=== PATIENT | male | born 1990 | race African-American/Black ===

== ENCOUNTER 2016-08-03 22:14 | Emergency (ER) | payer OTHER ==
[~2016-08-03] VITALS: Ht 177.8 cm; Wt 68.0 kg
[~2016-08-03 22:14] MED LIST: ALBUTEROL SULF8.5 GM INH; KEFLEX500 MG ORAL
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
[2016-08-03 22:38] VITALS: BP 101/64
[2016-08-03 22:43] VITALS: BP 101/64
--- NOTE | 2016-08-04 10:46 | Diagnostic Imaging Report ---
Indications: Left-sided headaches facial trauma, pain Technique: Continuous helical CT imaging of the brain was performed with automatic exposure control on a Siemens sensation [address] scanner. Axial and coronal images were reconstructed at 5 mm slice thickness and interval. CTDI volume(s): 70 mGy Total DLP: 1368 mGy-cm Findings: Comparison: None. Intracranial anatomy is unremarkable. No evidence of mass or hemorrhage, other attenuation abnormality, mass effect, midline shift, hydrocephalus or increased intracranial pressure. Bone window images are unremarkable. Visualized paranasal sinuses and mastoid air cells are clear. Left malar soft tissue swelling and increased in attenuation. No associated gas or foreign body. IMPRESSION: Left malar soft tissue swelling/hematoma. Consider facial CT scan for further evaluation. Otherwise negative noncontrast CT scan of the brain . This correlates with [employer] preliminary report. The CT scanner at [facility] [place] is accredited by the [employer] and the scans are performed using protocols designed to limit radiation exposure to as low as reasonably achievable to attain images of sufficient resolution adequate for diagnostic evaluation.
== END 2016-08-03 22:45 ==
LOC: EMR 22:20
DX: S00.12XA Contusion of left eyelid and periocular area, initial encounter (principal); Y04.2XXA Assault by strike against or bumped into by another person, initial encounter; Y92.9 Unspecified place or not applicable; F17.200 Nicotine dependence, unspecified, uncomplicated; J45.909 Unspecified asthma, uncomplicated
CPT/HCPCS: 70450; 99284

== ENCOUNTER 2018-08-22 06:04 | Emergency (ER) | payer OTHER ==
[~2018-08-22] VITALS: Ht 177.8 cm; Wt 70.3 kg
--- NOTE | 2018-08-22 06:10 | NUR ---
ED Nurse Note: Pt is current wheezing and c/o asthma episode.Pt states he run out of his inhale meds. Pt is AO x 4times, VSS, wheezing when talking, 100% O2 Sat on room air. ERMD at bedside.
--- NOTE | 2018-08-22 06:30 | NUR ---
ED Nurse Note: RT breathing treatment at bedside.
[2018-08-22] MEDS: Ipratropium 0.02% Inh Soln 2.5ml UD HHN SCH ×3 (06:32→07:19)
[2018-08-22] MEDS: Albuterol ud Inhalation HHN SCH ×3 (06:33→07:19)
[2018-08-22 06:38] VITALS: BP 122/76
--- NOTE | 2018-08-22 07:10 | NUR ---
ED Nurse Note: Patient is receiving breathing treatment and RT at bedside. Patient awake, alert, orientedx 4. Regular, unlabored breahthing noted. Pulse oximetry reading maintaining @ 96%.
[2018-08-22] MEDS ORDERED: Albuterol ud Inhalation HHN ONE (07:30)
[2018-08-22] MEDS ORDERED: Ipratropium 0.02% Inh Soln 2.5ml UD HHN ONE (07:30)
--- NOTE | 2018-08-22 07:58 | NUR ---
ED Nurse Note: Ambulating to the restroom without SOB and able to speak full sentence.
[2018-08-22 08:22] VITALS: BP 97/58
[2018-08-22] MEDS ORDERED: MEDROL DOSEPAK4 MG ORAL (08:35)
[2018-08-22] MEDS ORDERED: ROBAXIN-750750 MG PO (08:35)
[2018-08-22] MEDS ORDERED: ALBUTEROL SULF8.5 GM INH (08:35)
[2018-08-22 09:05] VITALS: BP 97/58
--- NOTE | 2018-08-22 09:06 | NUR ---
ED Nurse Note: Patient is being discharged from medical care. Patient awake, alert, orietned x4. D/C insturction and prescription given and all qustions were answered. Patient ambulated with steady gait with all his belongings.
--- NOTE | 2018-08-22 09:46 | Emergency Room Report ---
History of Present Illness General Chief Complaint: Asthma Source: Patient Present Illness HPI Patient presents with complaints of asthma exacerbation reports that over the past several months he has had more exacerbations the usual Denies any chest pain denies any vomiting Patient has also ran out of his inhaler denies any fevers denies any recent travel Patient has had low back problems and has had recent MRI with what he reports as being disc herniations in the lower back Denies any change with bowel or urination denies any chest pain or pleurisy Allergies: Coded Allergies: IBUPROFEN (Verified Allergy, Unknown, 08/22/18) Uncoded Allergies: SHELLFISH (Allergy, Unknown, 08/22/18) Patient History Past Medical History: see triage record Pertinent Family History: none Reviewed Nursing Documentation: PMH: Agreed; PSxH: Agreed Nursing Documentation-PMH Hx Asthma: Yes Review of Systems All Other Systems: negative except mentioned in HPI Physical Exam Vital Signs Date Time Temp Pulse Resp B/P (MAP) Pulse Ox O2 Delivery O2 Flow Rate FiO2 08/22/18 06:08 97.5 87 20 119/73 100 Room Air 08/22/18 06:32 21 Sp02 EP Interpretation: reviewed, normal General Appearance: no apparent distress - acute asthma exacerbation however Head: normocephalic, atraumatic Eyes: bilateral eye PERRL, bilateral eye EOMI ENT: hearing grossly normal, normal pharynx, TMs + canals normal, uvula midline Neck: full range of motion, supple, no meningismus, no bony tend Respiratory: no respiratory distress, no retraction, no accessory muscle use, wheezing - Bilaterally Cardiovascular #1: normal peripheral pulses, regular rate, rhythm, no edema, no gallop, no JVD, no murmur Gastrointestinal: normal bowel sounds, non tender, soft, no mass, no organomegaly, non-distended, no guarding, no hernia, no pulsatile mass, no rebound Genitourinary: no CVA tenderness Musculoskeletal: other - Patient reports previous low back injury with disc herniations, further extensive testing otherwise is not done, patient has sensory intact and ambulatory Neurologic: oriented x3, responsive, sensory intact Psychiatric: mood/affect normal Skin: normal color, no rash, warm/dry, palpation normal Lymphatic: normal inspection, no adenopathy Medical Decision Making Diagnostic Impression: Primary Impression: Asthma attack Additional Impression: back pain ER Course Patient has acute asthma exacerbation addressed also received steroids and Tylenol for low back pain Patient has done significantly better after acute intervention and requires improved outpatient care Last Vital Signs Date Time Temp Pulse Resp B/P (MAP) Pulse Ox O2 Delivery O2 Flow Rate FiO2 08/22/18 09:05 97.7 80 14 97/58 98 Room Air 21 Status: improved Disposition: HOME, SELF-CARE Condition: Improved Scripts Methylprednisolone (Methylprednisolone*) 4MG Dspk 4 MG ORAL DIRECTED for 6 Days, #21 EA 0 Refills Day 1: Two tablets before breakfast, one after lunch, one after dinner, and two at bedtime. If started late in the day, take all six tablets at once or divide into two or three doses, unless otherwise directed by prescriber. Day 2: One tablet before breakfast, one after lunch, one after dinner, and two at bedtime Day 3: One tablet before breakfast, one after lunch, one after dinner, and one at bedtime Day 4: One tablet before breakfast, one after lunch, and one at bedtime Day 5: One tablet before breakfast and one at bedtime Day 6: One tablet before breakfast Prov: Prakash Gonzalez DO 08/22/18 Albuterol Sulfate* (ALBUTEROL SULFATE MDI*) 8.5 Gm Hfa.aer.ad 2 PUFF INH Q6H, #1 EA 0 Refills Prov: Prakash Gonzalez DO 08/22/18 Methocarbamol* (ROBAXIN-750*) 750 Mg Tablet 750 MG PO TID, #21 TAB 0 Refills Prov: Prakash Gonzalez DO 08/22/18 Referrals: NOT CHOSEN IPA/MD,REFERRING (PCP) Patient Instructions: Asthma, Adult, Back Pain, Adult, [id number] Additional Instructions: Patient is provided with the discharge instructions notified to follow up with primary doctor in the next 2-3 days otherwise return to the er with any worsening symptoms. Please note that this report is being documented using [employer] technology. This can lead to erroneous entry secondary to incorrect interpretation by the dictating instrument. Prakash Gonzalez DO Aug 22, 2018 09:46
== END 2018-08-22 09:07 | disposition home or self-care (01) ==
LOC: EMR 06:33
DX: J45.901 Unspecified asthma with (acute) exacerbation (principal); M54.9 Dorsalgia, unspecified; Z88.6 Allergy status to analgesic agent; Z91.013 Allergy to seafood
CPT/HCPCS: 94640; 94664; 99284; J7512

== ENCOUNTER 2018-09-27 04:08 | Emergency (ER) | payer OTHER ==
[~2018-09-27] VITALS: Ht 177.8 cm; Wt 68.0 kg
[~2018-09-27 04:08] MED LIST changes: +MEDROL DOSEPAK4 MG ORAL; +ROBAXIN-750750 MG PO
[2018-09-27] MEDS ORDERED: Albuterol/Ipratropium 3ml neb HHN ONE (04:15)
--- NOTE | 2018-09-27 04:15 | NUR ---
ED Nurse Note: Patient walked into ED in respiratory distress, at time of arrival patient is actively wheezing, labored breathing, Bed side triage performed, patients o2 sat was 95% with 3 respirations per minute, patient is alert nado riented x4, ambulatory with a steady gait, VSS
--- NOTE | 2018-09-27 04:16 | Emergency Room Report ---
History of Present Illness General Chief Complaint: shortness of breath Source: Patient Present Illness HPI Patient is a 28-year-old male presented after increased difficulty with breathing. Patient a prior history of asthma. He reports running out of his albuterol. Patient denies any prior steroid use. He reports having acute onset of difficulty breathing last night. He reports having some increased nasal congestion and nonproductive cough. He denies any leg pain or swelling. He denies prior history of diabetes. He does not take any other medications. Allergies: Coded Allergies: IBUPROFEN (Verified Allergy, Unknown, 08/22/18) Uncoded Allergies: SHELLFISH (Allergy, Unknown, 08/22/18) Patient History Reviewed Nursing Documentation: PMH: Agreed; PSxH: Agreed Nursing Documentation-PMH Hx Asthma: Yes Review of Systems All Other Systems: negative except mentioned in HPI Physical Exam General Appearance: well appearing, alert, GCS 15, non-toxic, moderate distress Head: normocephalic, atraumatic ENT: hearing grossly normal, normal voice Neck: full range of motion, supple Respiratory: accessory muscle use, speaking full sentences, wheezing Cardiovascular #1: normal inspection, regular rate, rhythm Gastrointestinal: normal inspection Musculoskeletal: normal inspection, no calf tenderness Neurologic: normal inspection, alert, oriented x3, responsive, bindery machine setter III-XII nml as tested, normal gait Psychiatric: normal inspection, mood/affect normal Skin: no rash Medical Decision Making Diagnostic Impression: Primary Impression: Asthma attack ER Course Patient presented for cough and difficulty breathing. Differential diagnosis include was not limited to asthma exacerbation, pneumonia, bronchitis, sepsis among others. Patient has a benign exam and does not appear to require any further imaging or laboratory testing at this time. patient was given oral steroids as well as breathing treatments with improvement of symptoms.Patient is noted to have improved air movement. Patient was given prescription for steroids as well as albuterol. He is advised to follow-up with primary care physician and to return to be any worsening of condition. Time of discharge patient appears to be stable for discharge. Status: improved Disposition: HOME, SELF-CARE Condition: Stable Scripts Albuterol Sulfate* (ALBUTEROL SULFATE MDI*) 8.5 Gm Hfa.aer.ad 2 PUFF INH Q4H PRN for cough/wheezing, #1 EA 0 Refills Prov: Babak Gleason MD 09/27/18 Prednisone* (PREDNISONE*) 20 Mg Tablet 40 MG ORAL DAILY, #10 TAB Prov: Babak Gleason MD 09/27/18 Babak Gleason MD Sep 27, 2018 04:16
[2018-09-27 04:30] VITALS: BP 124/97
[2018-09-27] MEDS ORDERED: PREDNISONE20 MG ORAL (04:30)
[2018-09-27] MEDS ORDERED: ALBUTEROL SULF8.5 GM INH (04:30)
--- NOTE | 2018-09-27 04:30 | NUR ---
ED Nurse Note: unable to give prednisone to patient, no stock in [place] [facility], Charge nurse aware, received verbal order from Dr. Gleason for decadron 8mg PO
[2018-09-27 04:45] VITALS: BP 124/97
--- NOTE | 2018-09-27 04:45 | NUR ---
ER DISCHARGE NOTE: Patient is cleared to be discharged per ERMD, pt is aox4, on room air, with stable vital signs. pt was given dc and prescription instructions, pt was able to verbalize understanding, pt id band removed without complications. pt is able to ambulate with steady gait. pt took all belongings.
== END 2018-09-27 04:45 | disposition home or self-care (01) ==
LOC: EMR 04:38
DX: J45.909 Unspecified asthma, uncomplicated (principal); Z88.6 Allergy status to analgesic agent; Z91.013 Allergy to seafood
CPT/HCPCS: 94640; 94664; 99283; J8540; J7620

== ENCOUNTER 2018-10-15 01:24 | Emergency (ER) | payer OTHER ==
[~2018-10-15] VITALS: Ht 177.8 cm; Wt 74.8 kg
[~2018-10-15 01:24] MED LIST changes: +PREDNISONE20 MG ORAL
--- NOTE | 2018-10-15 01:35 | NUR ---
ED Nurse Note: Pt arrived ambulatory into ED for asthma exacerbation. Pt states he was sleeping and suddenly woke up with difficulty breathing. Pt arrived with labored breathing and heard with obvious wheezing without need of auscultation. RT contacted. Pt placed on monitor. VSS. Will continue to monitor.
[2018-10-15 01:40] VITALS: BP 110/87
[2018-10-15] MEDS ORDERED: Albuterol ud Inhalation HHN ONE (01:45)
[2018-10-15] MEDS ORDERED: Ipratropium 0.02% Inh Soln 2.5ml UD HHN ONE (01:45)
[2018-10-15] MEDS ORDERED: BREO ELLIPTA 11 EACH IH (02:29)
[2018-10-15] MEDS ORDERED: PREDNISONE20 MG ORAL (02:29)
[2018-10-15] MEDS ORDERED: ALBUTEROL SULF8.5 GM INH (02:29)
--- NOTE | 2018-10-15 02:29 | Emergency Room Report ---
History of Present Illness General Chief Complaint: Dyspnea/Respdistress Source: Patient Present Illness [facility] This is a 28-year-old male with a history of asthma. He presents with chief complaint of wheezing. Onset for 2 days. Out of his inhaler. He thinks the pollens is asked for his asthma. No nausea no vomiting. Worse with exertion. Worse with inspiration. No chest pain. No fever. Allergies: Coded Allergies: IBUPROFEN (Verified Allergy, Unknown, 08/22/18) Uncoded Allergies: SHELLFISH (Allergy, Unknown, 08/22/18) Patient History Past Medical History: see triage record, old chart reviewed, asthma Past Surgical History: none Pertinent Family History: none Social History: Denies: smoking Immunizations: other Reviewed Nursing Documentation: PMH: Agreed; PSxH: Agreed Nursing Documentation-PMH Hx Asthma: Yes Review of Systems Eye: Denies: eye pain, blurred vision ENT: Denies: ear pain, nose congestion, throat swelling Respiratory: Reports: shortness of breath, wheezing; Denies: cough Cardiovascular: Denies: chest pain, palpitations Gastrointestinal: Denies: abdominal pain, diarrhea, nausea, vomiting Musculoskeletal: Denies: back pain, joint pain Skin: Denies: rash Neurological: Denies: headache, numbness Endocrine: Denies: increased thirst, increased urine Hematologic/Lymphatic: Denies: easy bruising All Other Systems: negative except mentioned in HPI Physical Exam Vital Signs Date Time Temp Pulse Resp B/P (MAP) Pulse Ox O2 Delivery O2 Flow Rate FiO2 10/15/18 01:31 98.4 76 24 110/87 100 Nasal Cannula 2.0 10/15/18 01:42 28 vitals normal Sp02 EP Interpretation: reviewed, normal General Appearance: well appearing, no apparent distress, alert Head: normocephalic, atraumatic Eyes: bilateral eye PERRL, bilateral eye EOMI ENT: hearing grossly normal, normal pharynx Neck: full range of motion, supple, no meningismus Respiratory: chest non-tender, normal breath sounds, decreased breath sounds, accessory muscle use, wheezing Cardiovascular #1: regular rate, rhythm, no murmur Gastrointestinal: normal bowel sounds, non tender, no mass, no organomegaly, no bruit, non-distended Musculoskeletal: back normal, gait/station normal, normal range of motion Psychiatric: mood/affect normal Skin: warm/dry Medical Decision Making Diagnostic Impression: Primary Impression: Asthma attack Qualified Codes: J45.21 - Mild intermittent asthma with (acute) exacerbation ER Course patient presents with asthma exacerbation. No evidence of pneumonia or bacterial infection. Wheezing resolved after treatment. Steroids given. We' ll discharge home. Last Vital Signs Date Time Temp Pulse Resp B/P (MAP) Pulse Ox O2 Delivery O2 Flow Rate FiO2 10/15/18 01:55 75 20 100 Nasal Cannula 2.0 28 10/15/18 01:31 98.4 110/87 Status: improved Disposition: HOME, SELF-CARE Condition: Stable Scripts Fluticasone/Vilanterol (Breo Ellipta 100-25 Mcg INH) 1 Each Blst.w.dev 1 EACH IH DAILY, #1 EACH Prov: Volodymyr Avila MD 10/15/18 Prednisone* (PREDNISONE*) 20 Mg Tablet 40 MG ORAL DAILY, #8 TAB Prov: Volodymyr Avila MD 10/15/18 Albuterol Sulfate* (ALBUTEROL SULFATE MDI*) 8.5 Gm Hfa.aer.ad 2 PUFF INH Q4H PRN for cough/wheezing, #1 EA 0 Refills Prov: Volodymyr Avila MD 10/15/18 Additional Instructions: Follow-up with your doctor in 7 days for recheck. Return if worse. Stop smoking. Volodymyr Avila MD Oct 15, 2018 02:30
[2018-10-15 02:38] VITALS: BP 122/53
--- NOTE | 2018-10-15 02:38 | NUR ---
ED Nurse Note: Pt cleared by MD. Discharge paperwork and prescriptions were provided. Pt verbalized understanding of all instructions. ID band removed. All belongings were taken with patient. Pt A/Ox4, ambulatory with steady gait. Showing no signs of acute distress. VSS.
== END 2018-10-15 02:38 | disposition home or self-care (01) ==
LOC: EMR 01:38
DX: J45.21 Mild intermittent asthma with (acute) exacerbation (principal); Z88.6 Allergy status to analgesic agent; Z91.013 Allergy to seafood
CPT/HCPCS: 94640; 94664; 99284; J7512